=== PATIENT | male | born 1995 | race Hispanic/Latino ===

== ENCOUNTER → 2019-12-31 | Day surgery (SDC) | payer OTHER ==
[~2019-12-31] MED LIST: BACITRACIN 50,000 UNIT VIAL ONE; BUPIVACAINE HCL 0.5% INJ 30 ML VIAL INJ ONE; CEFAZOLIN SOD 1 GM/NS 50ML 100 ML IV ONE; FENTANYL CITRATE/PF 100MCG/2 ML INJ ONE; IBUPROFEN200 MG PO; MEPERIDINE HCL INJ 25 MG/ML VIAL ONE; MIDAZOLAM HCL 2 MG/2 ML VIAL ONE; TYLENOL WITH C1 EACH PO
[2019-12-31 12:10] VITALS: BP 131/79
--- NOTE | 2020-01-06 13:32 | Operative Report ---
DATE OF PROCEDURE: 12/31/2019 SURGEON: Dionicio Quigley MD PREOPERATIVE DIAGNOSIS: Right trimalleolar ankle fracture. POSTOPERATIVE DIAGNOSIS: Right trimalleolar ankle fracture. OPERATIONS/PROCEDURES PERFORMED: The patient underwent closed reduction of the right ankle mortise, and open reduction and internal fixation of the right fibular fracture, and a closed reduction and internal fixation of the right medial malleolus fracture. MANUFACTURING ENGINEER PAINT: There was no underwriting assistant. ANESTHESIA: General endotracheal intubation anesthesia. IV FLUIDS: Per the anesthesia record. BLOOD LOSS: Minimal. BRIEF DESCRIPTION OF THE PATIENT'S OPERATIVE PROCEDURE: Mr. Powell was taken to the operating room and placed in supine position on the operating table. Following induction of general anesthesia as well as endotracheal intubation, the patient's right lower extremity was examined under anesthesia. He was found to have a bruise and ecchymosis over the right ankle joint. The ankle joint was swollen at the time of surgery. Fluoroscopic evaluation demonstrated a trimalleolar ankle fracture with disruption of the patient's ankle mortise. The patient's lower extremity was prepped and draped in standard fashion. The case was begun by reducing the patient's ankle mortise in a closed fashion. The incision was then created directly over the distal aspect of the fibula. This incision was carried through skin only. Blunt dissection used to deepen the incision to the level of the patient's fibular fracture. The dissection was carried out anteriorly and posteriorly to isolate the fracture site. The fracture was identified and cleaned; it was reduced and held in place with a fracture reduction clamp. A plate was contoured to the lateral aspect of the fibula. A single screw was passed from anterior to posterior providing compression across the patient's fracture site. The plate was then affixed to the fibula both with combinations of cortical and cancellous screws. Fluoroscopic evaluation of the ankle joint demonstrated reduction and stabilization of the fibula. This wound was then copiously irrigated and closed in a multilayer fashion. Attention was then turned to the patient's medial malleolus fracture. The medial malleolus fracture had reduced anatomically with reduction of the ankle mortise as well as reduction of the fibula. Two stabbing incisions were carried through the skin only and two pins were inserted from distal to proximal transfixing the medial fracture in its reduced position. Two 4-0 cannulated screws were then passed over the pins providing compression across the patient's fracture site. The position of the screws was then assessed fluoroscopically and found to be appropriate. These wounds were also copiously irrigated and closed in a multilayer fashion. Fluoroscopy of the ankle at this time demonstrated reduction and realignment of the ankle mortise with stabilization of both the medial and lateral fracture fragments. The posterior fracture fragment was found to be acceptably reduced at this time. All wounds were dressed sterilely. The patient was provided a well-padded 3-sided splint, awakened, and taken to the postanesthesia care unit in stable condition. MD NURA Dunne/FELTON /[id number]
== END | disposition home or self-care (01) ==
LOC: OR 07:14
PROVIDERS: ATTEND Specialist
DX: S82.851A Displaced trimalleolar fracture of right lower leg, initial encounter for closed fracture (principal); D64.9 Anemia, unspecified; R03.0 Elevated blood-pressure reading, without diagnosis of hypertension; E78.00 Pure hypercholesterolemia, unspecified; F41.9 Anxiety disorder, unspecified; F17.210 Nicotine dependence, cigarettes, uncomplicated; V00.131A Fall from skateboard, initial encounter; Y93.51 Activity, roller skating (inline) and skateboarding; Y92.34 Swimming pool (public) as the place of occurrence of the external cause; Y99.8 Other external cause status
CPT/HCPCS: 27822; C1713 ×6; J0690; J2175; J2250; J3010

== ENCOUNTER → 2020-04-09 | Outpatient (RCR) | payer OTHER ==
[~2020-04-09] MED LIST changes: -BACITRACIN 50,000 UNIT VIAL ONE; -BUPIVACAINE HCL 0.5% INJ 30 ML VIAL INJ ONE; -CEFAZOLIN SOD 1 GM/NS 50ML 100 ML IV ONE; -FENTANYL CITRATE/PF 100MCG/2 ML INJ ONE; -MEPERIDINE HCL INJ 25 MG/ML VIAL ONE; -MIDAZOLAM HCL 2 MG/2 ML VIAL ONE
== END ==
LOC: PT 03-11 09:54
PROVIDERS: ATTEND Specialist
DX: S82.891A Other fracture of right lower leg, initial encounter for closed fracture (principal); M62.81 Muscle weakness (generalized); R26.2 Difficulty in walking, not elsewhere classified; M25.571 Pain in right ankle and joints of right foot; M25.671 Stiffness of right ankle, not elsewhere classified
CPT/HCPCS: 97139

== ENCOUNTER 2020-04-28 16:53 | Outpatient (RCR) | payer OTHER | END 2020-05-10 | LOC: PT 16:53 | PROVIDERS: ATTEND Specialist | DX: S82.891A Other fracture of right lower leg, initial encounter for closed fracture (principal); M62.81 Muscle weakness (generalized); R26.2 Difficulty in walking, not elsewhere classified; M25.571 Pain in right ankle and joints of right foot; M25.671 Stiffness of right ankle, not elsewhere classified ==